=== PATIENT | male | born 1970 | race Caucasian/White ===

== ENCOUNTER 2017-01-13 14:29 | Emergency (ER) | payer OTHER ==
[~2017-01-13] VITALS: Ht 182.9 cm; Wt 81.6 kg
[~2017-01-13 14:29] MED LIST: ASPI-605 PO; CLOP75TA2 PO; PROP80CA PO; QUET400T PO; SIMV40TA5 PO
[2017-01-13 14:44] LABS: BASOPHILS # (AUTO) 0.7 /CMM (0.0-0.2); BASOPHILS % (AUTO) 4.7 % (0.0-2.0); DIFF TOTAL % 100 %; EOSINOPHILS # (AUTO) 0.2 /CMM (0.0-0.7); EOSINOPHILS % (AUTO) 1.6 % (0.0-6.0); HEMATOCRIT 47 % (39-51); HEMOGLOBIN 15.3 g/dL (13.5-17.5); LYMPHOCYTES # (AUTO) 2.5 /CMM (0.8-4.8); LYMPHOCYTES % (AUTO) 16.2 % (20.0-44.0); MEAN CORPUSCULAR HEMOGLOBIN 31 PG (26.0-33.0); MEAN CORPUSCULAR HGB CONC 33 g/dl (31.0-36.0); MEAN CORPUSCULAR VOLUME 94 fL (80-96); MONOCYTES # (AUTO) 1.1 /CMM (0.1-1.30); MONOCYTES % (AUTO) 7.2 % (2.0-12.0); NEUTROPHILS % (AUTO) 70.3 % (43.0-81.0); PLATELET COUNT (AUTO) 335 /CMM (150-450); RED BLOOD CELL COUNT(AUTO) 4.97 MIL/uL (4.5-6.0); WHITE BLOOD COUNT (AUTO) 15.5 K/uL (4.3-11.0)
[2017-01-13] MEDS ORDERED: IV SET PRIMARY 1 EA INFUS.SET MC ONE ×2 (14:45→15:39)
[2017-01-13] MEDS ORDERED: IV NS 0.9% 500 ML IV ONE (14:45)
[2017-01-13 14:53] LABS: ANION GAP 12 (5-14); CALCIUM, SERUM 8.8 mg/dL (8.5-10.1); CARBON DIOXIDE 31 mmol/L (21-32); CHLORIDE 101 mmol/L (98-107); CREATININE 1.2 mg/dL (0.6-1.3); GFR 65 mL/min (>60); GLUCOSE 90 mg/dL (74-106); POTASSIUM 5.9 mmol/L (3.5-5.1); SODIUM SERUM 138 mmol/L (136-145); UREA NITROGEN, BLOOD 9 mg/dL (7-18)
[2017-01-13] MEDS ORDERED: IV NS 0.9% 500 ML BAG IV ONE (15:00)
[2017-01-13 15:01] LABS: TROPONIN I < 0.017 ng/mL (0.00-0.056)
[2017-01-13] MEDS ORDERED: IV NS 0.9% 1,000 ML IV ONE (15:30)
[2017-01-13] MEDS ORDERED: NALOXONE HCL 0.4 MG/ML AMPUL ONE (15:39)
[2017-01-13] MEDS ORDERED: IV NS 0.9% 1,000 ML ONE (15:39)
[2017-01-13] MEDS ORDERED: NALOXONE HCL 0.4 MG/ML AMPUL IV ONE (16:00)
[2017-01-13 16:07] LABS: ADD UA MICROSCOPIC NO; KETONES,URINE Negative (NEGATIVE); LEUKOCYTE ESTERASE ,URINE Negative (NEGATIVE); PH,URINE 5.5 (5.0-8.0)
[2017-01-13 21:18] VITALS: BP 128/76
== END 2017-01-13 21:18 | disposition home or self-care (01) ==
LOC: ER 14:33
DX: T40.1X1A Poisoning by heroin, accidental (unintentional), initial encounter (principal); Y92.9 Unspecified place or not applicable; I10 Essential (primary) hypertension; I48.91 Unspecified atrial fibrillation; I25.10 Atherosclerotic heart disease of native coronary artery without angina pectoris; F17.200 Nicotine dependence, unspecified, uncomplicated; Z79.82 Long term (current) use of aspirin
CPT/HCPCS: 36415; 71010-TC; 80048-TC; 81000-TC; 84484-TC; 85025-TC; A4606; J2310; J7030; J7040; Z7610

== ENCOUNTER 2020-04-14 03:36 | Emergency (ER) | payer OTHER ==
[~2020-04-14] VITALS: Ht 177.8 cm; Wt 81.6 kg
[2020-04-14 03:36] VITALS: BP 134/78
[~2020-04-14 03:36] MED LIST changes: +CLOP75TA15 PO; -CLOP75TA2 PO; -PROP80CA PO; +PROP80CA51 PO; +SIMV-49 PO; -SIMV40TA5 PO
== END 2020-04-14 03:59 | disposition home or self-care (01) ==
LOC: ER 03:43
DX: F32.9 Major depressive disorder, single episode, unspecified (principal); I10 Essential (primary) hypertension; F17.200 Nicotine dependence, unspecified, uncomplicated; Z59.0 Homelessness; Z79.899 Other long term (current) drug therapy; Z79.82 Long term (current) use of aspirin

== ENCOUNTER 2020-04-15 21:28 | Emergency (ER) | payer OTHER ==
[~2020-04-15] VITALS: Ht 172.7 cm; Wt 65.8 kg
[2020-04-15 22:01] LABS: BASOPHILS # (AUTO) 0.1 /CMM (0.0-0.2); BASOPHILS % (AUTO) 1.3 % (0.0-2.0); EOSINOPHILS % (AUTO) 1.2 % (0.0-6.0); HEMATOCRIT 41 % (39-51); HEMOGLOBIN 13.8 g/dL (13.5-17.5); LYMPHOCYTES # (AUTO) 2.3 /CMM (0.8-4.8); MEAN CORPUSCULAR HGB CONC 34 g/dl (31.0-36.0); MEAN CORPUSCULAR VOLUME 94 fL (80-96); MONOCYTES # (AUTO) 0.8 /CMM (0.1-1.30); MONOCYTES % (AUTO) 10.1 % (2.0-12.0); NEUTROPHILS % (AUTO) 59.4 % (43.0-81.0); PLATELET COUNT (AUTO) 286 /CMM (150-450); RED BLOOD CELL COUNT(AUTO) 4.31 MIL/uL (4.5-6.0); WHITE BLOOD COUNT (AUTO) 8.3 K/uL (4.3-11.0)
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
[2020-04-15] MEDS ORDERED: FLUORESCEIN SODIUM OPHTH 1 EA STRIP ONE (22:04)
[2020-04-15] MEDS ORDERED: SOD BORATE/BORIC AC/H2O/NACL 118 ML BOTTLE ONE (22:04)
[2020-04-15 22:07] LABS: CALCIUM, SERUM 8.5 mg/dL (8.5-10.1); CARBON DIOXIDE 29 mmol/L (21-32); CHLORIDE 96 mmol/L (98-107); GLUCOSE 128 mg/dL (74-106); POTASSIUM 3.5 mmol/L (3.5-5.1); SODIUM SERUM 134 mmol/L (136-145); UREA NITROGEN, BLOOD 13 mg/dL (7-18)
[2020-04-15] MEDS ORDERED: ASPIRIN 325 MG TABLET PO ONE (22:30)
[2020-04-15] MEDS ORDERED: IV NS 0.9% 1,000 ML IV ONE (22:30)
[2020-04-15] MEDS ORDERED: ASPIRIN 325 MG TABLET ONE (22:36)
--- NOTE | 2020-04-15 23:35 | NUR ---
Patient discharged to home in stable condition. Written and verbal after care instructions given. Patient verbalizes understanding of instruction.IV removed. Catheter intact and site benign. Pressure and 4x4 applied to site. No bleeding noted. Pt ambulatory with a steady gait. homeless waiver signed by the pt.
[2020-04-15 23:38] VITALS: BP 139/69
== END 2020-04-15 23:39 | disposition home or self-care (01) ==
LOC: ER 21:30
DX: R51 Headache (principal); R07.89 Other chest pain; I10 Essential (primary) hypertension; I48.91 Unspecified atrial fibrillation; F17.200 Nicotine dependence, unspecified, uncomplicated; Z59.0 Homelessness; Z79.899 Other long term (current) drug therapy; Z79.82 Long term (current) use of aspirin
CPT/HCPCS: 36415; 71045; 80048; 84484; 85025; 93005 ×2; 99285; J7030